=== PATIENT | male | born 1995 | race Caucasian/White ===

== ENCOUNTER 2020-08-17 18:55 | Emergency (ER) | payer SELFPAY ==
[~2020-08-17] VITALS: Ht 165.1 cm; Wt 56.8 kg
[~2020-08-17 18:55] MED LIST: NO HOME MEDS
[2020-08-17 20:20] VITALS: BP 124/71
[2020-08-17] MEDS ORDERED: NAPROXEN500 MG PO (20:21)
== END 2020-08-17 20:35 | disposition home or self-care (01) | DRG 552 ==
LOC: ED 18:55
DX: S13.9XXA Sprain of joints and ligaments of unspecified parts of neck, initial encounter (principal); S33.5XXA Sprain of ligaments of lumbar spine, initial encounter; V58.5XXA Driver of pick-up truck or van injured in noncollision transport accident in traffic accident, initial encounter

== ENCOUNTER 2023-10-20 02:30 | Emergency (ER) | payer SELFPAY ==
[2023-10-20] VITALS (8 sets, daily range): BP systolic 111–140; BP diastolic 54–93
[~2023-10-20] VITALS: Ht 165.1 cm; Wt 54.0 kg
[~2023-10-20 02:30] MED LIST changes: +NAPROXEN500 MG PO
[2023-10-20] MEDS ORDERED: TAMSULOSIN HCL 0.4 MG CAP PO STA (02:42)
[2023-10-20] MEDS ORDERED: SODIUM CHLORIDE 0.9% 1,000 ML IV STA ×2 (02:42→04:16)
[2023-10-20] MEDS ORDERED: KETOROLAC TROMETHAMINE 30 MG/ML SDV IV ONE (02:45)
[2023-10-20] MEDS ORDERED: PROMETHAZINE HCL 25 MG/ML AMP IV ONE (02:45)
[2023-10-20] MEDS ORDERED: OXYCODONE5 M1 PO (02:48)
[2023-10-20 02:56] LABS: BASO% 0.2 % (0-3); EOS% 2.5 % (0-8); IMMATURE GRANULOCYTES 0.7 % (0.0-5.0); LYMPH% 19.6 % (15-41); MEAN CORPUSCULAR HGB 29.4 pG CALC (26.0-32.0); MEAN CORPUSCULAR HGB CONC 33.3 g/dL CAL (32.0-36.0); MONO% 7.1 % (2-13); NEUT# 7.46 thou/uL (1.82-7.42); NEUT% 69.9 % (42-76); RED BLOOD COUNT 4.76 mill/uL (4.70-6.10); RED CELL DISTRI WIDTH 12.7 % (11.5-15.5)
[2023-10-20 02:57] LABS: HEMATOCRIT 42.1 % (39.0-50.0); MEAN CELL VOLUME 88.4 fL CALC (80.0-100.0)
[2023-10-20 03:18] LABS: ALBUMIN 4.6 g/dL (3.2-5.0); BILIRUBIN, TOTAL 0.2 mg/dL (0.2-1.3); POTASSIUM 3.9 mmol/l (3.5-5.1); TOTAL PROTEIN 7.2 g/dL (6.3-8.2)
[2023-10-20 04:45] LABS: URINE BILIRUBIN - DIPSTICK Negative (NEGATIVE); URINE BLOOD DIPSTICK Moderate (NEGATIVE); URINE GLUCOSE - DIPSTICK Negative (NEGATIVE); URINE KETONE Negative (NEGATIVE); URINE LEUK ESTERASE Negative (NEGATIVE); URINE NITRITE - DIPSTICK Negative (Negative); URINE PROTEIN - DIPSTICK Negative (NEG-TRACE); URINE UROBILINOGEN - DIPSTICK 0.2 E.U./dL (0.2)
[2023-10-20 04:48] LABS: URINE COLOR Yellow
[2023-10-20 04:53] LABS: URINE WBC 0-2 WBC/hpf (0-5)
[2023-10-20] MEDS ORDERED: PROMETHAZINE HY25 M1 PO (05:01)
[2023-10-20] MEDS ORDERED: TAMSULOSIN0.4 MG PO (05:01)
== END 2023-10-20 05:09 | disposition home or self-care (01) | DRG 694 ==
LOC: ED 02:30
PROVIDERS: Family Medicine
DX: N23 Unspecified renal colic (principal); R31.29 Other microscopic hematuria
CPT/HCPCS: Q9967